=== PATIENT | female | born 1950 | race Caucasian/White ===

== ENCOUNTER → 2016-10-06 | Outpatient (CLI) | payer OTHER, MEDICARE ==
--- NOTE | 2016-10-06 17:19 | DX ---
Left Ankle, Three Views History: Fibular fracture July 30, 2016, follow up. Comparison: September 10, 2016. Findings: Oblique fracture of the distal metadiaphysis of the left fibula demonstrates partial callus formation. Fracture line remains evident with callus formation appearing similar to the September study. No displacement or angulation. Distal tibia appears intact. No widening of the ankle mortise . Impression: Subacute distal fibular oblique metadiaphyseal fracture with callus but fracture line sti ll evident.
== END ==
LOC: BMCIMAGING 15:01
PROVIDERS: ATTEND Podiatrist Foot & Ankle Surgery
DX: S82.432D Displaced oblique fracture of shaft of left fibula, subsequent encounter for closed fracture with routine healing (principal)

== ENCOUNTER → 2016-11-09 | Outpatient (CLI) | payer OTHER, MEDICARE ==
--- NOTE | 2016-11-09 16:08 | DX ---
Left Weight-bearing Ankle Series, 3 Views History: Follow up fracture; comparison to October 06, 2016. Findings: There is stable alignment of the healing fibular fracture with prominent periosteal bone fo rmation. The fracture line appears slightly less conspicuous than previously, consistent with progres feliciano in healing. The ankle mortise is intact. Impression: Stable alignment of healing left fibular fracture.
== END ==
LOC: BMCIMAGING 13:12
PROVIDERS: ATTEND Podiatrist Foot & Ankle Surgery
DX: S82.402D Unspecified fracture of shaft of left fibula, subsequent encounter for closed fracture with routine healing (principal)

== ENCOUNTER → 2016-12-07 | Outpatient (CLI) | payer OTHER, MEDICARE | LOC: BMCIMAGING 09:49 | DX: Z12.31 Encounter for screening mammogram for malignant neoplasm of breast (principal); Z80.3 Family history of malignant neoplasm of breast | CPT/HCPCS: G0202 ==

== ENCOUNTER → 2016-12-21 | Outpatient (CLI) | payer OTHER, MEDICARE | LOC: BMCIMAGING 14:27 | PROVIDERS: ATTEND Podiatrist Foot & Ankle Surgery | DX: S82.832D Other fracture of upper and lower end of left fibula, subsequent encounter for closed fracture with routine healing (principal) ==

== ENCOUNTER → 2018-04-04 | Outpatient (CLI) | payer OTHER, MEDICARE | LOC: BMCIMAGING 08:51 | PROVIDERS: ATTEND Internal Medicine | DX: Z12.31 Encounter for screening mammogram for malignant neoplasm of breast (principal); Z80.3 Family history of malignant neoplasm of breast ==